=== PATIENT | male | born 1945 | race Caucasian/White ===

== ENCOUNTER → 2021-01-22 14:34 | Outpatient (CLI) | payer MEDICARE, OTHER, SELFPAY ==
--- NOTE | 2021-01-22 14:39 | DI.ECHO.S_ITS ---
[facility] +---------+ : : [address] : [place] : : : : [id number] : : : : Phone: [phone] Echocardiogram Report + + :Name: ROBERT GUTIERREZ Study Date: 01/22/2021 Height: 75 in : [facility] Weight: 194 lb : : Gender: Male BSA: 2.2 m2 : :: 1945 Age: 76 yrs BP: 139/89 mmHg: :Reason For Study: syncope : :Ordering Physician: KAYLA, : :DANN Performed By: Pola Mehta : :Referring: DANN GARZA : + + Interpretation Summary Sinus bradycardia with heart rate 43-48 pm. Normal LV sized and wall thickness. Normal wall motion and LV systolic function. EF is 55-60%. Stage I diastolic dysfunction. Normal chamber sizes. No valvular abnormalities. No prior study available for comparison Procedure: A two-dimensional transthoracic echocardiogram with color flow and Doppler was performed. The study quality was technically adequate. There is no prior echocardiogram noted for this patient. The patient was in sinus bradycardia with heart rates between 43-48 bpm during the exam. Left Ventricle: The left ventricle is normal in size and wall thickness. Left ventricular systolic function is normal. The ejection fraction is estimated to be 55-60%. There are no focal wall motion abnormalities. Diastolic parameters suggest probable normal left ventricular diastolic function and normal filling pressures. Right Ventricle: The right ventricle is normal in size and function. Atria: Both atria are normal in size. There is no Doppler evidence for an interatrial shunt. Mitral Valve: The mitral valve is normal in structure and function. There is trace mitral regurgitation. Aortic Valve: The aortic valve is normal in structure and function. No aortic regurgitation is present. Tricuspid Valve: The tricuspid valve is normal in structure and function. There is mild tricuspid regurgitation. The right ventricular systolic pressure is estimated to be at least 31 mmHg based on an estimated right atrial pressure of 3 mm Hg. Pulmonic Valve: The pulmonic valve is normal in structure and function. There is a trace or physiologic amount of pulmonic regurgitation. Great Vessels: Dilated coronary sinus. The aortic root is normal size. The dimensions of the ascending aorta are normal. The IVC is of normal diameter and collapses greater than 50% with a sniff. This suggests a low right atrial pressure of 3 mm Hg. Pericardium/ Pleura There is no pericardial effusion. There is no pleural effusion. MMode/2D Measurements & Calculations LVIDd: 4.9 cm LVOT diam: 2.0 cm LVIDs: 3.2 cm Ao root diam: 3.3 cm FS: 35.0 % asc Aorta Diam: 3.5 cm IVSd: 0.88 cm LVPWd: 0.69 cm LV palomino. diameter/BSA (cm/m^2): 2.3 LV sys. diameter/BSA (cm/m^2): 1.5 LA A2 area: 18.7 cm2 RA long axis: 5.5 cm LA A4 area: 21.1 cm2 RA area: 16.2 cm2 LA length (vol): 5.9 cm RA vol: 40.4 ml LA vol: 56.3 ml RA : 18.7 ml/m2 LA vol index: 26.0 ml/m2 IVC diam: 2.0 cm TAPSE: 2.3 cm Doppler Measurements & Calculations Ao V2 max: 152.8 cm/sec LVOT Max Yosef: 138.9 cm/sec Ao V2 mean: 99.3 cm/sec LV V1 max P.7 mmHg Ao max P.3 mmHg LV V1 VTI: 29.7 cm Ao mean P.6 mmHg RADAMES(I,D): 2.9 cm2 Ao V2 VTI: 31.4 cm RADAMES(V,D): 2.8 cm2 sev ratio: 0.95 RADAMES indexed to BSA (cm^2/m^2): 1.4 MV E max yosef: 89.3 cm/sec TR max yosef: 265.8 cm/sec MV A max yosef: 90.6 cm/sec TR max P.3 mmHg MV E/A: 0.99 PA V2 max: 125.9 cm/sec Med Peak E' Yosef: 7.8 cm/sec PA V2 mean: 91.0 cm/sec E/E' med: 11.4 PA mean P.6 mmHg Lat Peak E' Yosef: 10.8 cm/sec PA pr(Accel): 15.6 mmHg E/E' lat: 8.2 E/e' average: 9.8 MV dec time: 0.25 sec SV(LVOT): 91.9 ml Electronically signed by: Kristal Fraga M.D. on Reading Physician:01/22/2021 11:19 PM
== END ==
PROVIDERS: Family Provider Family Medicine; PCP Family Medicine; Referring Provider Family Medicine; Visit Provider Family Medicine
DX: I07.1 Rheumatic tricuspid insufficiency (principal); R55 Syncope and collapse; R07.2 Precordial pain
CPT/HCPCS: 93306

== ENCOUNTER → 2022-02-07 11:56 | Outpatient (CLI) | payer MEDICARE, OTHER, SELFPAY ==
--- NOTE | 2022-02-07 12:01 | DI.CT.S_ITS ---
PROCEDURE: CT KIDNEY URETER BLADDER (KUB) INDICATIONS: Calculus of kidney TECHNIQUE: Axial sections were acquired from the lung bases to the pubic symphysis. Coronal and sagittal reformats were performed. For radiation dose reduction, the following was used: automated exposure control, adjustment of mA and/or kV according to patient size. COMPARISON: None. FINDINGS: Image quality: Lack of intravenous contrast limits assessment of solid and vascular structures, particularly for neoplasm Lower thorax: The lung bases are clear. Heart size normal. No hiatal hernia. Liver: Normal in size and attenuation. No contour deformity present. Biliary system: Cholecystectomy. No intra or extrahepatic bile duct dilation. Pancreas: Unremarkable without mass or inflammation evident. Spleen: Normal in size and density. Adrenals: Normal morphology and density. Reproductive system: Unremarkable as visualized. Urinary system: 1.5 cm non obstructive right renal calculus. Indeterminate right renal hypodensity measures 1.8 cm. Additional 2 cm cortical cyst, probable simple cyst present. Indeterminate hypodensity 2.4 cm present in the left kidney. Several hyperdense lesions present in the left kidney is well. No evidence of hydronephrosis bilaterally. Gastrointestinal system: The bowel is unremarkable without evidence of bowel obstruction or inflammation. The stomach appears unremarkable. Multiple diverticula arise from the sigmoid colon without evidence of diverticulitis. Appendix: Normal appendix identified. No evidence of appendicitis. Peritoneal spaces: No mesenteric or retroperitoneal adenopathy. No free air. No free fluid. Vasculature: The IVC, aorta and iliac vasculature are unremarkable. Abdominal wall: Abdominal wall intact without evidence of ventral or inguinal hernias. Musculoskeletal: Normal bone mineralization. Degenerative disc disease and arthropathy noted in lower lumbar spine. Moderate central stenosis L4-5. No acute fractures. IMPRESSION: 1. Large 1.5 cm nonobstructive right renal calculus. No hydronephrosis bilaterally. 2. Indeterminate hypodensities noted bilateral kidneys measuring up to 2.4 cm on the left. Consider follow-up contrast CT or MRI to exclude neoplasm. 3. Degenerative changes include sigmoid diverticulosis and degenerative disc disease Approved by: Phi Pinedo M.D. on 02/07/2022 at 17:23
== END ==
PROVIDERS: Family Provider Family Medicine; PCP Family Medicine; Referring Provider Student in an Organized Health Care Education/Training Program; Visit Provider Student in an Organized Health Care Education/Training Program
DX: N20.0 Calculus of kidney (principal); R93.422 Abnormal radiologic findings on diagnostic imaging of left kidney; R93.421 Abnormal radiologic findings on diagnostic imaging of right kidney
CPT/HCPCS: 74176

== ENCOUNTER 2022-08-12 13:57 | Observation (INO) | payer MEDICARE, OTHER, SELFPAY ==
[2022-08-12 14:04] VITALS: BP 196/93; PULSE 48; RESP 15; TEMP 36.1; O2SAT 98; BMI 23.0
--- NOTE | 2022-08-12 14:09 | DI.RAD.S_ITS ---
PROCEDURE: XR CHEST 1V INDICATIONS: Possible stroke TECHNIQUE: One view of the chest was acquired. COMPARISON: None. FINDINGS: Surgical changes and devices: None. Lungs and pleura: Lungs are clear. No pleural effusions or pneumothorax. Mediastinum: Mediastinal contours appear normal. Heart size is normal. Bones and chest wall: No suspicious bony lesions. Overlying soft tissues appear unremarkable. IMPRESSION: Normal for age, no sign of aspiration. Dictated by: Lui Knutson M.D. on 08/12/2022 at 14:56 Approved by: Lui Knutson M.D. on 08/12/2022 at 14:57
[2022-08-12 14:26] LABS: Add Manual Diff / Slide Review NO; Basophils Absolute Auto 0 /uL (0-100); Basophils Percent Auto 0.7 % (0-2); Eosinophils Absolute Auto 0 /uL (0-450); Hematocrit 42.1 % (41-53); Hemoglobin 14.5 g/dL (13.5-17.5); Lymphocytes Absolute Auto 1700 /uL (1100-4500); Lymphocytes Percent Auto 35.7 % (25-40); Mean Corpuscular HGB Conc 34.4 % (30-36); Mean Corpuscular Hemoglobin 29.4 PG (26-34); Mean Corpuscular Volume 85.5 fL (80-100); Monocytes Absolute Auto 400 /uL (0-900); Monocytes Percent Auto 9.4 % (3-14); Neutrophils Absolute Auto 2500 /uL (1500-7000); Neutrophils Percent Auto 53.2 % (50-75); Platelet Count 152 X10^3/uL (150-400); Red Blood Cell Count 4.93 X10^6/uL (4.5-5.9); Red Cell Distribution Width 13.2 % (11.6-14.8); White Blood Cell Count 4.8 X10^3/uL (4.5-11.0)
--- NOTE | 2022-08-12 14:28 | DI.CT.S_ITS ---
PROCEDURE: CT HEAD/BRAIN WO CON INDICATIONS: double vision since yesterday, NOT TPA candidate TECHNIQUE: Noncontrast 4.5 mm thick angled axial sections acquired from the foramen magnum to the vertex, with coronal and sagittal reformats. For radiation dose reduction, the following was used: automated exposure control, adjustment of mA and/or kV according to patient size. COMPARISON: None. FINDINGS: Image quality: Excellent. CSF spaces: Basal cisterns are patent. No extra-axial fluid collections. The ventricles are symmetric in size and shape. Brain: No intracranial bleeds can be seen. There is a 1 cm ovoid nodule along the left aspect of the falx anteriorly, as seen on series 4, image 18. . There is cerebral volume loss for age, with resultant ventricular and sulcal prominence. There are periventricular and deep white matter chronic small vessel ischemic changes. There is intracranial internal carotid artery atherosclerosis. Skull and face: Calvarium and visualized facial bones appear intact, without suspicious lesions. Sinuses: Visualized sinuses and mastoids are clear. IMPRESSION: No acute intracranial process is seen. No acute intracranial hemorrhage is seen. Incidental 1 cm nodule along the left aspect of the anterior falx, which is attributed to a meningioma. Dictated by: Sanchez Crowley M.D. on 08/12/2022 at 13:38 Approved by: Sanchez Crowley M.D. on 08/12/2022 at 13:40
[2022-08-12 14:31] LABS: INR 1.2 (0.9-1.3); Prothrombin Time 13.4 SECONDS (10.1-12.7)
[2022-08-12 14:33] LABS: PTT Partial Thromboplastin Tim 31 SECONDS (26-36)
[2022-08-12 14:35] LABS: Alanine Aminotransferase 21 IU/L (<50); Albumin 4.1 g/dL (3.5-5.0); Albumin Globulin Ratio 1.6 (1.0-2.8); Alkaline Phosphatase 71 U/L (38-126); Aspartate Aminotransferase 26 IU/L (17-59); BUN Creatinine Ratio 16.2 (6-22); Blood Urea Nitrogen 16 mg/dL (9-20); Carbon Dioxide 27 mmol/L (22-32); Chloride 105 mmol/L (98-107); Creatine Kinase 105 U/L (55-170); Estimated Glomerular Filt Rate > 60 mL/min (>60); Globulin 2.5 g/dL (1.7-4.1); Glucose 108 mg/dL (80-110); HEMOLYSIS < 15 (0-50); Sodium 138 mmol/L (137-145); Total Protein 6.6 g/dL (6.3-8.2)
[2022-08-12 14:47] LABS: Troponin I < 0.012 ng/mL (0.01-0.034)
[2022-08-12 14:50] LABS: CKMB % Relative Index 1.6 % (1.5-5.0); Creatine Kinase MB 1.66 ng/mL (<2.37)
[2022-08-12 15:52] VITALS: BP 180/90; PULSE 50; RESP 12; O2SAT 99
--- NOTE | 2022-08-12 18:46 | ED.EYEPROB ---
HPI - Eye Problem General Chief complaint: Eye Problems Stated complaint: binocular vision as of yesterday Time Seen by Provider: 08/12/22 18:04 Source: patient Mode of arrival: Ambulatory History of Present Illness HPI Narrative: 77-year-old male nonsmoker with history of hypertension, prior throat cancer presents with his in the chief complaint of double vision that he noticed yesterday. He denies any recent trauma or injury, no fever, chills or neck pain. No chest pain or shortness of breath. He states that he was in his normal state of health and gone for a walk and started noticing that with both eyes open he had double vision with images [id number] both at close range and distant. He denies other neurologic symptoms such as dizziness, weakness or lightheadedness, he has no trouble with ambulation or ataxia and denies any extremity numbness, tingling or weakness. Related Data Home Medications Medication Instructions Recorded Confirmed hydrochlorothiazide 25 mg tablet 25 mg PO QDAY #0 tabs 02/11/16 Previous Rx's Medication Instructions Recorded potassium citrate 10 mEq (1,080 20 meq PO Q DAY #90 tabs 01/31/17 mg) tablet,extended release Allergies Allergy/AdvReac Type Severity Reaction Status Date / Time No Known Drug Allergies Allergy Verified 08/12/22 14:04 Review of Systems Review of Systems Narrative: GENERAL: Denies chills, fatigue, malaise, fever, sweats. HEENT: Denies sinus pain, ear pain, sore throat, difficulty swallowing, dizziness. RESPIRATORY: Denies dyspnea, cough, wheezing, hemoptysis, sputum. CARDIOVASCULAR: Denies chest pain, palpitations, orthopnea, edema, GASTROINTESTINAL: Denies nausea, vomiting, abdominal pain, diarrhea, constipation, melena. : Denies dysuria, frequency, incontinence, hematuria, urinary retention. MUSCULOSKELETAL: denies weakness, joint pain, or bony pain SKIN: Denies rash, skin lesions, or other NEUROLOGIC: See HPI PSYCHIATRIC: No concerning psychosocial issues. 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 Well-developed patient, in mild distress. GCS 15 HEAD: Atraumatic. Normocephalic. EYES: Pupils equal round and reactive. Lateral gaze palsy when looking Right his R eye does not fully track laterally. No scleral icterus. No injection or drainage. ENT: Nose without bleeding, purulent drainage. Throat without erythema, tonsillar hypertrophy or exudate. Airway patent. NECK: Trachea midline. Non tender CARDIOVASCULAR: Regular rate and rhythm without murmurs, gallops, or rubs. RESPIRATORY: Clear to auscultation. Breath sounds equal bilaterally. No wheezes, rales, or rhonchi. GASTROINTESTINAL: Abdomen soft, non-tender, nondistended. EXTREMITIES: No edema or joint tenderness. BACK: Nontender without deformity or crepitance. No flank tenderness. NEURO: AOx3. SKIN: No rash or erythema of visible areas Initial Vital Signs Initial Vital Signs: Vital Signs Temperature 97.0 F L 08/12/22 14:04 Pulse Rate 48 L 08/12/22 14:04 Respiratory Rate 15 08/12/22 14:04 Blood Pressure 196/93 H 08/12/22 14:04 Pulse Oximetry 98 08/12/22 14:04 Oxygen Delivery Method Room Air 08/12/22 14:04 Scores NIH Stroke Scale Level of Conciousness: Alert, keenly responsive Ask month/age: Answers both questions correctly. Open/close eyes, close hand: Performs both tasks correctly Best gaze horizontal: Partial gaze palsy, can be overcome by finger tracking, head turning Visual pimentel: No visual loss Facial palsy: Normal symetrical movement Left arm drift: No drift for full 10 sec Right arm drift: No drift for full 10 sec Left leg drift: No drift for full 5 sec Right leg drift: No drift for full 5 sec Limb ataxia: Absent Sensory on face/arms/legs: Normal, no sensory loss Best language: No aphasia, normal Dysarthria: Normal Extinction or inattention: No abnormality Total NIH Stroke scale score: 1 Course Orders Ordered: ED Orders 08/12/22 18:58 CT angio head and neck Stat 08/12/22 22:05 Education, smoking cessation ONGOING Education, smoking cessation ONGOING 08/12/22 23:59 Urine Drug Screen, Rapid Stat 08/13/22 MR stroke Stat Acetaminophen (Acetaminophen 325 Mg Tablet) 650 mg PO Q6H PRN PRN Reason: Fever/Mild Pain (1-3) Aspirin (Aspirin Ec 81 Mg Tablet) 81 mg PO DAILY [facility] Atorvastatin Calcium (Atorvastatin 20 Mg Tablet) 40 mg PO BEDTIME [facility] Last Admin: 08/12/22 23:33 Dose: 40 mg Documented By: MS Enalaprilat (Enalaprilat 2.5 Mg/ 2 Ml Vial) 0.625 mg IV Q6H [facility] Last Admin: 08/12/22 23:33 Dose: 0.625 mg Documented By: MS Enoxaparin Sodium (Enoxaparin 40 Mg/0.4 Ml Syringe) 40 mg SUBCUT DAILY [facility] Naloxone HCl (Naloxone 0.4 Mg/Ml Vial) 0.2 mg IV Q2MIN PRN PRN Reason: Opiate Reversal Discontinued Medications Aspirin (Aspirin 81 Mg Chew Tab) 324 mg PO NOW ONE Stop: 08/12/22 18:59 Last Admin: 08/12/22 19:38 Dose: 324 mg Documented By: KB Vital Signs Vital signs: Vital Signs - 8 hr 08/12/22 14:04 08/12/22 15:52 Temperature 97.0 F L Pulse Rate 48 L 50 L Respiratory Rate 15 12 Blood Pressure 196/93 H 180/90 H Pulse Oximetry 98 99 Oxygen Delivery Method Room Air Room Air MDM - Eye Problem Lab Data 08/12/22 14:15 08/12/22 14:15 Labs: Lab Results 08/12/22 08/12/22 08/12/22 Range/Units 14:15 14:15 14:15 WBC 4.8 (4.5-11.0) X10^3/uL RBC 4.93 (4.5-5.9) X10^6/uL Hgb 14.5 (13.5-17.5) g/dL Hct 42.1 (41-53) % MCV 85.5 (80-100) fL MCH 29.4 (26-34) PG MCHC 34.4 (30-36) % RDW 13.2 (11.6-14.8) % Plt Count 152 (150-400) X10^3/uL Neut % (Auto) 53.2 (50-75) % Lymph % (Auto) 35.7 (25-40) % [place] % (Auto) 9.4 (3-14) % Eos % (Auto) 1.0 L (2-4) % Baso % (Auto) 0.7 (0-2) % Neut # (Auto) 2500 (9848-3061) /uL Lymph # (Auto) 1700 (7824-8943) /uL [place] # (Auto) 400 (0-900) /uL Eos # (Auto) 0 (0-450) /uL Baso # (Auto) 0 (0-100) /uL PT 13.4 H (10.1-12.7) SECONDS INR 1.2 (0.9-1.3) APTT 31 (26-36) SECONDS Sodium 138 (137-145) mmol/L Potassium 4.0 (3.4-5.1) mmol/L Chloride 105 (98-107) mmol/L Carbon Dioxide 27 (22-32) mmol/L BUN 16 (9-20) mg/dL Creatinine 0.99 (0.66-1.25) mg/dL Estimated GFR > 60 (>60) mL/min BUN/Creatinine Ratio 16.2 (6-22) Glucose 108 (80-110) mg/dL Hemoglobin A1c (4.0-6.0) % Calcium 10.0 (8.4-10.2) mg/dL Magnesium 2.0 (1.6-2.3) mg/dL Total Bilirubin 1.0 (0.2-1.3) mg/dL AST 26 (17-59) IU/L ALT 21 (<50) IU/L Alkaline Phosphatase 71 (38-126) U/L Total Creatine Kinase 105 (55-170) U/L CK-MB (CK-2) 1.66 (<2.37) ng/mL CK-MB (CK-2) Rel Index 1.6 (1.5-5.0) % Troponin I < 0.012 (0.01-0.034) ng/mL Total Protein 6.6 (6.3-8.2) g/dL Albumin 4.1 (3.5-5.0) g/dL Globulin 2.5 (1.7-4.1) g/dL Albumin/Globulin Ratio 1.6 (1.0-2.8) 08/12/22 Range/Units 14:15 WBC (4.5-11.0) X10^3/uL RBC (4.5-5.9) X10^6/uL Hgb (13.5-17.5) g/dL Hct (41-53) % MCV (80-100) fL MCH (26-34) PG MCHC (30-36) % RDW (11.6-14.8) % Plt Count (150-400) X10^3/uL Neut % (Auto) (50-75) % Lymph % (Auto) (25-40) % [place] % (Auto) (3-14) % Eos % (Auto) (2-4) % Baso % (Auto) (0-2) % Neut # (Auto) (0976-5001) /uL Lymph # (Auto) (8526-6339) /uL [place] # (Auto) (0-900) /uL Eos # (Auto) (0-450) /uL Baso # (Auto) (0-100) /uL PT (10.1-12.7) SECONDS INR (0.9-1.3) APTT (26-36) SECONDS Sodium (137-145) mmol/L Potassium (3.4-5.1) mmol/L Chloride (98-107) mmol/L Carbon Dioxide (22-32) mmol/L BUN (9-20) mg/dL Creatinine (0.66-1.25) mg/dL Estimated GFR (>60) mL/min BUN/Creatinine Ratio (6-22) Glucose (80-110) mg/dL Hemoglobin A1c 5.3 (4.0-6.0) % Calcium (8.4-10.2) mg/dL Magnesium (1.6-2.3) mg/dL Total Bilirubin (0.2-1.3) mg/dL AST (17-59) IU/L ALT (<50) IU/L Alkaline Phosphatase (38-126) U/L Total Creatine Kinase (55-170) U/L CK-MB (CK-2) (<2.37) ng/mL CK-MB (CK-2) Rel Index (1.5-5.0) % Troponin I (0.01-0.034) ng/mL Total Protein (6.3-8.2) g/dL Albumin (3.5-5.0) g/dL Globulin (1.7-4.1) g/dL Albumin/Globulin Ratio (1.0-2.8) Urine Dip Bedside Urine Glucose Negative Bedside Urine Bilirubin - Negative Bedside Urine Ketone - Negative Urine Specific [place] 1.015 Bedside Urine Occult Blood - Negative Bedside Urine pH 6.0 Bedside Urine Protein - Negative Bedside Urine Urobilinogen - Negative Bedside Urine Nitrite - Negative Bedside Urine Leukocytes - Negative Esterase Imaging Data CT scan - head: Radiologist's Impression: No acute intracranial process. Incidental 1 cm nodule along the left aspect of the anterior falx which was attributed to a meningioma MDM Narrative Medical decision making narrative: CC: 77-year-old male with history of hypertension with binocular double vision Complicating co-morbidities: Hypertension, age, prior cancer Data collected from: Patient Medical records reviewed: Prior notes reviewed in our EMR Differential considered, but not limited to: Stroke, ocular problem versus other Exam documented above, pertinent findings include: Lateral gaze palsy Lab Test results independently reviewed as above. Pertinent findings: Independently reviewed EKG as above Imaging studies independently reviewed: CT of head without bleed, possible note of meningioma. CTA shows no significant or acute stenosis but again mention of falcine meningioma Scores Used: NIH stroke scale MIPS Elements: #187: Stroke & Stroke Rehabilitation: Thrombolytic Therapy [x] Patient arrived more than 3.5 hours after last known well time, or the time last known well is unknown Consultations: Hospitalist happy to accept Treatments: Aspirin Re-evaluations: No change or course of visit Discussion: Patient with neurologic symptoms since yesterday which include a binocular diplopia with physical exam findings consistent with a right lateral rectus palsy consistent with possible cranial nerve 6 palsy. Patient requires hospitalization for further evaluation of stroke including echo and MRI Discharge Plan Departure Patient Disposition: Admitted as Observation Clinical Impression: Gaze palsy Admit Date/Time: 08/12/22 22:10 Admit Provider: Naomi Jones
--- NOTE | 2022-08-12 18:58 | DI.CT.S_ITS ---
PROCEDURE: CT ANGIO HEAD AND NECK INDICATIONS: binocular double vision, CN6 palsy TECHNIQUE: After the administration of intravenous contrast, 1 mm thick sections acquired from the aortic arch through the [place] of [place]. Post-contrast 4.5 mm thick sections then re-acquired from the foramen magnum to the vertex. 3-dimensional vovpuih-ieeflvjdm-toviprsaqr (MIP) and/or volume rendering reformats were acquired of the central intracranial vasculature and neck separately. For radiation dose reduction, the following was used: automated exposure control, adjustment of mA and/or kV according to patient size. COMPARISON: None. FINDINGS: Image quality: Excellent. BRAIN: CSF spaces: Ventricles are normal in size and shape. Basal cisterns are patent. No extra-axial fluid collections. Brain: No midline shift. No intracranial bleeds. Left falx mass measuring approximately 0.7 cm. Most consistent with a benign meningioma. No area of hypodensity in a large vascular distribution to suggest acute infarction. Periventricular hypodensity consistent with chronic microvascular ischemic change. Age-related parenchymal loss. Skull and face: Calvarium and facial bones appear intact, without suspicious lesions. Orbits appear normal. Sinuses: Sinuses and mastoids are clear. HEAD CT ANGIOGRAPHY: Anterior circulation: Intracranial internal carotid arteries are normal in size and flow. The flow within the paired anterior cerebral arteries is normal and symmetric. The flow within the middle cerebral arteries is normal and symmetric. The anterior communicating artery is seen. No aneurysms are seen. Posterior circulation: origin of the bilateral posterior cerebral arteries. Visualized portions of the vertebral arteries demonstrate normal caliber, and join to form a normal appearing basilar artery. No aneurysms are seen. NECK CT ANGIOGRAPHY: Carotid system: The great vessels demonstrate a conventional anatomy as they arise from the aortic arch. The origins of the common carotid arteries appear patent. The common carotid arteries demonstrate normal caliber and courses. The bifurcation regions are both widely patent. Moderate calcified plaque at the carotid bulbs. Less than 50 % stenosis. The internal carotid arteries demonstrate normal calibers and courses. Posterior circulation: The origins of the vertebral arteries both appear widely patent. Right vertebral artery is dominant. The more superior extracranial portions of both vertebral arteries also demonstrate normal courses and calibers. They join to form a normal appearing basilar artery. Soft tissues: Visualized neck soft tissues demonstrate no suspicious abnormalities. 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 Bones: No suspicious bony lesions. Visualized cervical spine appears normally aligned. IMPRESSION: 1. No large vessel occlusion. 2. No critical stenosis in the neck. Less than 50 % stenosis at the carotid bulbs. There is moderate calcified plaque. Consider carotid ultrasound. 3. Right vertebral artery is dominant. origin of the bilateral international trade specialist, variant anatomy. 4. Small left falx meningioma. Any quantitative measurements of stenosis were performed using NASCET criteria. Dictated by: Michael Sawyer M.D. on 08/12/2022 at 20:06 Approved by: Michael Sawyer M.D. on 08/12/2022 at 20:16
[2022-08-12] MEDS: ASPIRIN 81 MG CHEW TAB 324 MG PO (19:38)
[2022-08-12 22:52] LABS: Hemoglobin A1C% w Est Avg Glu 5.3 % (4.0-6.0)
[2022-08-12 23:05] VITALS: BMI 23.0
[2022-08-12 23:15] VITALS: BMI 23.0
[2022-08-12] MEDS: ENALAPRILAT 2.5 MG/ 2 ML VIAL 0.625 MG IV (23:33)
[2022-08-12] MEDS: ATORVASTATIN 20 MG TABLET 40 MG PO (23:33)
[2022-08-12 23:34] VITALS: BP 183/87; PULSE 47; RESP 19; TEMP 36.8; O2SAT 99
--- NOTE | 2022-08-13 | DI.MRI.S_ITS ---
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 After the administration of contrast, axial 3D VIBE of the cranial vasculature and brain. Brain MRA: Non-contrast 3-D time of flight MR angiogram, with multiple ojegqns-czsxzrbrl-ghflieubkv (MIP) reformats performed. Neck MRA: Axial and sagittal TruFISP through the neck. Coronal dynamic MR angiogram during administration of contrast in the arterial and venous phases, with 3-dimenstional mtuayit-fthxsuxbg-ybohofkzwh (MIP) reformats constructed from subtraction images. COMPARISON: [facility], CT, CT ANGIO HEAD AND NECK, 08/12/2022, 19:06. [facility], CT, CT HEAD/BRAIN WO CON, 08/12/2022, 14:20. FINDINGS: Image quality: Excellent. BRAIN: The ventricular system and cortical sulci demonstrate atrophy, consistent for the patient's stated age. There are areas of increased T2/FLAIR signal intensity within the periventricular and subcortical white matter. There is no acute intra-or extra axial fluid collection. No acute hemorrhage, or midline shift. There is an unchanged extra-axial enhancing mass in the left parafalcine region most suggestive of meningioma. No associated edema. Brainstem is unremarkable. There are no areas of restricted diffusion. Globes are symmetrical. Sinuses are aerated. Osseous structures are intact. BRAIN MR ANGIOGRAM: Anterior circulation: Less than 50% atherosclerotic narrowing within the supraclinoid internal carotid arteries bilaterally. The flow within the paired anterior cerebral arteries is normal and symmetric. The flow within the middle cerebral arteries is normal and symmetric. The anterior communicating artery is seen. No stenoses, occlusions, or aneurysms. Posterior circulation: There is right vertebral artery dominance. 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 The visualized portions of the vertebral arteries demonstrate normal caliber, and join to form a normal appearing basilar artery. The flow within the posterior cerebral arteries is normal and symmetric. No stenoses, occlusions, or aneurysms. NECK MR ANGIOGRAM: Carotids: Great vessels demonstrate a conventional anatomy as they arise from the aortic arch. The origins of the common carotid arteries appear patent. The calibers and courses of both common carotid arteries are normal. The bifurcation regions appear normal bilaterally. The internal carotid arteries demonstrate normal course and caliber. Posterior circulation: The origins of the vertebral arteries appear patent. More superior portions of both vertebral arteries demonstrate normal course and caliber, and join to form a normal appearing basilar artery. Miscellaneous: Subclavian arteries appear patent. Pre-contrast images through the neck show no soft tissue abnormalities. IMPRESSION: 1. No acute intracranial process. 2. Moderate atrophy and chronic microvascular ischemic changes. 3. No areas of hemodynamically significant stenosis, vascular occlusion or aneurysmal dilation within the anterior circulation. 4. No areas of hemodynamically significant stenosis, vascular occlusion or aneurysmal dilation within the posterior circulation. 5. No areas of hemodynamically significant stenosis, vascular occlusion or aneurysmal dilation within the neck vasculature. Dictated by: Libertad Mckee M.D. on 08/13/2022 at 9:27 Approved by: Libertad Mckee M.D. on 08/13/2022 at 9:32
--- NOTE | 2022-08-13 00:02 | P.HP_ITS ---
History of Present Illness History of Present Illness Date Patient Seen: 08/13/22 Time Patient Seen: 00:02 Chief complaint: binocular vision as of yesterday Narrative: Fletcher Russo is a 77-year-old male former smoker with history of hypertension, prior throat cancer presents with his in the chief complaint of double vision that he noticed yesterday.? ? He states that he was in his normal state of health and gone for a walk and started noticing that with both eyes open, he had double vision with images smcr-ju-[id number] both at close range and distant.? If he closes one eye, he can see normally this occurs with both eyes. He has a history of laser surgery of both eyes, denies ever having cataract surgery. He states he is very healthy, has an 18 mile walk, walking about 4 miles per day with his dog. He denies any recent trauma or injury, no fever, chills or neck pain.? No chest pain or shortness of breath. He denies other neurologic symptoms such as dizziness, weakness or lightheadedness, he has no trouble with ambulation or ataxia and denies any extremity numbness, tingling or weakness. Report of brain CT reported Incidental 1 cm nodule along the left aspect of the anterior falx, which is attributed to a meningioma. Otherwise no intercranial process or hemmorhage seen. He is afebrile blood pressure is high at 180 3/87 heart rate 47 respiratory rate 19 oxygen saturation 99% on room air he weighs 83.4 kg with a BMI of 23. CBC, BMP liver enzymes are all unremarkable his A1c is 5.3 indicating that he is not diabetic and COVID-19 PCR is negative. 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) Surgical History (Updated 08/13/22 @ 00:10 by RJ Pimentel) History of lithotripsy History of radical neck dissection Hx of LASIK Family & Social History Family History (Updated 08/13/22 @ 00:11 by RJ Pimentel) Father Cancer Lung cancer Mother Cardiac arrest Other Hyperlipidemia Social History: household members spouse Prior Living Arrangements House Safety & Behavioral: Feels Safe in Current Yes Environment Been Physically Hurt or No Threatened By a Person Tobacco & Substance use: Smoking Status quit 6 years ago alcohol intake denies alcohol intake frequency holiday/special occasion Substance Use Type does not use Meds Home Medications and Allergies Home Medications Medication Instructions Recorded Confirmed Type hydrochlorothiazide 25 mg tablet 25 mg PO QDAY #0 tabs 02/11/16 History potassium citrate 10 mEq (1,080 20 meq PO Q DAY #90 tabs 01/31/17 Rx mg) tablet,extended release Allergies Allergy/AdvReac Type Severity Reaction Status Date / Time No Known Drug Allergies Allergy Verified 08/12/22 14:04 Review of Systems Review of Systems ROS: Yes All systems reviewed with the patient and are negative except as otherwise documented Exam Vital Signs (past 8 hours): - 08/12/22 23:34 Temperature 98.2 F Pulse Rate 47 L Respiratory Rate 19 Blood Pressure 183/87 H Pulse Oximetry 99 Oxygen Delivery Method Room Air Narrative Exam Narrative: Gen: Alert, oriented, thin 77 y.o. male, NAD HEENT: normocephalic, atraumatic, left eye turned medially, appears not to track with right eye, conjunctiva clear, sclera non-icteric, oral mucosa pink and moist Neck: supple, full ROM, no JVD, trachea is midline Resp: Lungs CTA, non-labored breathing CV: RRR, no murmur or rubs Abd: soft, non-tender, normoactive BTs Skin: no lesions or rashes, dry and intact Neuro: Alert and oriented X 4 w/no focal deficits. Speech clear and coherent. Extremities: moves all 4 extremities, is ambulatory, negative Morenita?s sign Psyche: normal mood and affect. Objective Labs 08/12/22 14:15 08/12/22 14:15 Labs: Laboratory Results - last 24 hr 08/12/22 08/12/22 08/12/22 14:15 14:15 14:15 WBC 4.8 RBC 4.93 Hgb 14.5 Hct 42.1 MCV 85.5 MCH 29.4 MCHC 34.4 RDW 13.2 Plt Count 152 Neut % (Auto) 53.2 Lymph % (Auto) 35.7 Callahan % (Auto) 9.4 Eos % (Auto) 1.0 L Baso % (Auto) 0.7 Neut # (Auto) 2500 Lymph # (Auto) 1700 Callahan # (Auto) 400 Eos # (Auto) 0 Baso # (Auto) 0 PT 13.4 H INR 1.2 APTT 31 Sodium 138 Potassium 4.0 Chloride 105 Carbon Dioxide 27 BUN 16 Creatinine 0.99 Estimated GFR > 60 BUN/Creatinine Ratio 16.2 Glucose 108 Hemoglobin A1c Calcium 10.0 Magnesium 2.0 Total Bilirubin 1.0 AST 26 ALT 21 Alkaline Phosphatase 71 Total Creatine Kinase 105 CK-MB (CK-2) 1.66 CK-MB (CK-2) Rel Index 1.6 Troponin I < 0.012 Total Protein 6.6 Albumin 4.1 Globulin 2.5 Albumin/Globulin Ratio 1.6 SARS-CoV-2 (PCR) 08/12/22 08/12/22 14:15 22:47 WBC RBC Hgb Hct MCV MCH MCHC RDW Plt Count Neut % (Auto) Lymph % (Auto) Callahan % (Auto) Eos % (Auto) Baso % (Auto) Neut # (Auto) Lymph # (Auto) Callahan # (Auto) Eos # (Auto) Baso # (Auto) PT INR APTT Sodium Potassium Chloride Carbon Dioxide BUN Creatinine Estimated GFR BUN/Creatinine Ratio Glucose Hemoglobin A1c 5.3 Calcium Magnesium Total Bilirubin AST ALT Alkaline Phosphatase Total Creatine Kinase CK-MB (CK-2) CK-MB (CK-2) Rel Index Troponin I Total Protein Albumin Globulin Albumin/Globulin Ratio SARS-CoV-2 (PCR) Cancelled Assessment & Plan Assessment & Plan narrative: Emre Russo will be observed overnight for further assessment and workup of a TIA/Stroke 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 - differential outside of a CVA includes idiopathic sixth intercranial hypertension, demylenation, ischemia, unrupture aneurysm, or neoplastic, the latter a suspicion given the patient's past malignancy history. TIA/Stroke, acute and present on admission - Cardiac telemetry - NIH score greater than 5 X no, HIH scoring and neuro checks q 4 hours - Dual antiplatelet therapy: No Low dose aspirin only. - MR stroke scheduled for 08/13 - Complete Echo with bubble study for 08/13 - PT/OT/ST evaluation - His last echocardiogram done in 01/2021 indicated a preserved EF w/Stage 1 diastolic dysfunction Hypertension, acute with an admission bp of 196/93, present on admission - Allow for permissive hypertension of 220/110 HR 60 to allow for brain perfusion, goal drop in bp to a systolic of no less than 150 - IV labetolol if his systolic exceeds 220 or diastolic greater than 105. HLD Fasting lipid panel, pending for 0500 labs - Atorvastatin 40 mg po at bedtime Risk stratification - Fasting lipid panel pending for the morning - A1c is 5.3 % Diabetes type 2 pre-diabetic X not diabetic Other independent historians: None Discussion of results, plan of care with independent HCP/other: ED provider Reviewed outside records: Echocardiogram VTE Prophylaxis: Wells risk score 0 XEnoxaparin 40 mg subQ once daily C Elton betancur SCDs Patient is placed into observation as his stay is not expected to exceed 2 midnights. FEN: IV fluids: saline lock, diet: heart healthy, labs: CBC, C/BMP, liver enzymes, Mag, PT/INR Consultants None Social determinants of health: Lives on [place], access to specialists is limited or difficult Dispo: probable d/c to home Code status: Full code as discussed with the patient who identifies his , Mariana as his surrogate and POA. [X] I have utilized all available immediate resources to obtain, update, or review of the patient's current medications VTE Deep Vein Thrombosis/Pulmonary Embolism Present on Admission: No MIPS - Admit I confirm the patient?s Advance Care Plan is present, Code status is documented, Surrogate decision maker is in patient?s record: Yes MIPS - DC The patient has current or prior documentation of left ventricular ejection fraction (LVEF) less than 40%, or moderate or severely depressed left ventricular systolic function.: No COVID-19 COVID-19 status: Negative Result date/Date tested (Pos, Neg/Pending): 08/13/22 Quality VTE Deep Vein Thrombosis/Pulmonary Embolism Present on Admission: No
[2022-08-13 00:12] LABS: COVID19 -Nasal RAPID Negative (Negative)
[2022-08-13 00:22] LABS: UR Morphine/Opiate cutoff 300 Negative (Negative); Ur Creatinine Normal (Normal); Ur Specific Gravity Normal (Normal); Urine Amphetamines Negative (Negative); Urine Barbiturates Negative (Negative); Urine Benzodiazepines Negative (Negative); Urine Cocaine Negative (Negative); Urine MDMA Negative (Negative); Urine Methadone Negative (Negative); Urine Methamphetamines Negative (Negative); Urine Oxycodone Negative (Negative); Urine Phencyclidine Negative (Negative); Urine Tetrahydrocannabinol Negative (Negative); Urine Tricyclic Antidepressant Negative (Negative); Urine pH Normal (Normal)
[2022-08-13 00:29] VITALS: BP 134/69
[2022-08-13 04:35] VITALS: BP 114/64; PULSE 48; RESP 17; TEMP 36.3; O2SAT 93
[2022-08-13 04:41] LABS: Add Manual Diff / Slide Review NO; Basophils Absolute Auto 100 /uL (0-100); Basophils Percent Auto 1.4 % (0-2); Eosinophils Absolute Auto 100 /uL (0-450); Hematocrit 40.5 % (41-53); Lymphocytes Absolute Auto 1700 /uL (1100-4500); Lymphocytes Percent Auto 31.8 % (25-40); Mean Corpuscular HGB Conc 34.5 % (30-36); Mean Corpuscular Hemoglobin 29.4 PG (26-34); Mean Corpuscular Volume 85.1 fL (80-100); Monocytes Absolute Auto 500 /uL (0-900); Monocytes Percent Auto 10.2 % (3-14); Neutrophils Absolute Auto 2800 /uL (1500-7000); Neutrophils Percent Auto 54.6 % (50-75); Platelet Count 142 X10^3/uL (150-400); Red Blood Cell Count 4.76 X10^6/uL (4.5-5.9); Red Cell Distribution Width 13.2 % (11.6-14.8); White Blood Cell Count 5.2 X10^3/uL (4.5-11.0)
[2022-08-13 04:53] LABS: Cholesterol 158 mg/dL (140-199); HDL Cholesterol 44 mg/dL (40-60); LDL Cholesterol Calculated 102 mg/dL (<100); Triglycerides 58 mg/dL (35-150)
[2022-08-13 04:55] LABS: Alanine Aminotransferase 20 IU/L (<50); Albumin 3.6 g/dL (3.5-5.0); Albumin Globulin Ratio 1.6 (1.0-2.8); Alkaline Phosphatase 68 U/L (38-126); Aspartate Aminotransferase 24 IU/L (17-59); BUN Creatinine Ratio 17.7 (6-22); Bilirubin Total 1.5 mg/dL (0.2-1.3); Blood Urea Nitrogen 17 mg/dL (9-20); Calcium 9.5 mg/dL (8.4-10.2); Carbon Dioxide 27 mmol/L (22-32); Chloride 105 mmol/L (98-107); Estimated Glomerular Filt Rate > 60 mL/min (>60); Globulin 2.3 g/dL (1.7-4.1); Glucose 91 mg/dL (80-110); HEMOLYSIS < 15 (0-50); Magnesium 1.9 mg/dL (1.6-2.3); Sodium 138 mmol/L (137-145); Total Protein 5.9 g/dL (6.3-8.2)
[2022-08-13 05:32] LABS: Thyroid Stimulating Hormone 3.25 uIU/mL (0.47-4.68)
[2022-08-13 07:45] VITALS: O2SAT 97
--- NOTE | 2022-08-13 08:04 | PC.NURSE ---
Day shift: Pt off unit for MRI at approx 0800. Off tele and CINDER BLOCK MASON Judith is aware.
[2022-08-13] MEDS: ASPIRIN EC 81 MG TABLET PO (09:04)
[2022-08-13 09:35] VITALS: BP 151/86; PULSE 50; RESP 16; TEMP 36.4; O2SAT 100
--- NOTE | 2022-08-13 09:52 | DI.ECHO.S_ITS ---
Interpretation Summary The left ventricle is normal in size and wall thickness. Left ventricular systolic function appears normal without focal wall motion abnormalities. The ejection fraction is estimated to be 55-60%. Diastolic parameters suggest probable normal left ventricular diastolic function and normal filling pressures. The right ventricle is normal in size and function. The left atrium is mildly dilated. Right atrial size is normal. There is no significant valvular heart disease. The aortic root is normal size. Procedure: A two-dimensional transthoracic echocardiogram with color flow and Doppler was performed. The study quality was technically good. There has been no significant change since the previous study. The patient was in sinus bradycardia with heart rates between 43-48 bpm during the exam. Left Ventricle: The left ventricle is normal in size and wall thickness. Left ventricular systolic function appears normal without focal wall motion abnormalities. The ejection fraction is estimated to be 55-60%. Diastolic parameters suggest probable normal left ventricular diastolic function and normal filling pressures. Right Ventricle: The right ventricle is normal in size and function. Atria: The left atrium is mildly dilated. Right atrial size is normal. There is no Doppler evidence for an interatrial shunt. Mitral Valve: The mitral valve leaflets appear mildly thickened, but open well. The mitral valve leaflets appear to open well. Calcified mitral apparatus. There is trace mitral regurgitation. Aortic Valve: The aortic valve is normal in structure and function. No aortic regurgitation is present. Tricuspid Valve: The tricuspid valve is normal in structure and function. There is mild tricuspid regurgitation. Pulmonic Valve: The pulmonic valve leaflets are thin and pliable; valve motion is normal. There is a trace or physiologic amount of pulmonic regurgitation. There is no significant valvular heart disease. Great Vessels: The aortic root is normal size. Dilated coronary sinus. The ascending aorta is normal in size. The pulmonary artery is normal size. The IVC is of normal diameter and collapses greater than 50% with a sniff. This suggests a low right atrial pressure of 3 mm Hg. Pericardium/ Pleura There is no pericardial effusion. There is no pleural effusion. MMode/2D Measurements & Calculations LVIDd: 4.6 cm LVOT diam: 2.0 cm LVIDs: 2.7 cm Ao root diam: 3.5 cm FS: 41.2 % asc Aorta Diam: 3.4 cm EPSS: 0.40 cm IVSd: 1.0 cm LVPWd: 0.83 cm LV palomino. diameter/BSA (cm/m^2): 2.2 LV sys. diameter/BSA (cm/m^2): 1.3 LA A2 area: 23.9 cm2 RA long axis: 5.7 cm LA A4 area: 20.8 cm2 RA area: 19.2 cm2 LA length (vol): 5.2 cm RA vol: 55.1 ml LA vol: 80.4 ml RA : 26.0 ml/m2 LA vol index: 38.0 ml/m2 IVC diam: 1.9 cm RVD1 (basal): 3.0 cm TAPSE: 2.3 cm Doppler Measurements & Calculations Ao V2 max: 142.7 cm/sec LVOT Max Yosef: 131.8 cm/sec Ao V2 mean: 94.2 cm/sec LV V1 max P.9 mmHg Ao max P.1 mmHg LV V1 VTI: 30.3 cm Ao mean P.1 mmHg RADAMES(I,D): 3.0 cm2 Ao V2 VTI: 32.0 cm RADAMES(V,D): 2.9 cm2 sev ratio: 0.95 RADAMES indexed to BSA (cm^2/m^2): 1.4 MV E max yosef: 94.6 cm/sec TR max yosef: 269.2 cm/sec MV A max yosef: 90.3 cm/sec TR max P.0 mmHg MV E/A: 1.0 PA V2 max: 96.9 cm/sec Med Peak E' Yosef: 7.6 cm/sec PA V2 mean: 66.3 cm/sec E/E' med: 12.4 PA mean P.0 mmHg Lat Peak E' Yosef: 12.3 cm/sec E/E' lat: 7.7 E/e' average: 10.0 MV dec time: 0.28 sec MVA(VTI): 2.1 cm2 MV V2 mean: 47.5 cm/sec SV(LVOT): 95.7 ml MV mean P.2 mmHg MV V2 VTI: 44.5 cm Reading Physician:01:08 PM
--- NOTE | 2022-08-13 11:17 | CM.DANOTE ---
Initial Discharge Assessment Note: 77 year old admitted yesterday with r/o CVA related to vision changes. MRI and Echo done this morning. Patient is normally independent and lives with spouse on [place]. Plan: Patient would like to return home if medically cleared to [place] by 12 Noon [place] catch [place] ferry. Notified Dr Pierce. SAVANNAH Discharge Planning/Care Management CM Discharge Assessment Start: 08/13/22 11:16 Freq: Status: Active Protocol: Document 08/13/22 11:16 (Rec: 08/13/22 11:17 [email or web address]) Discharge Planning Assessment Assigned Bus Transportation Manager Kavita Melendez Advance Directives? No History Provided By Patient,Medical Record Prior Living Arrangements House Household Members spouse Type of transporation used prior to Drives own vehicle admit Needs Assistance With Home Chores / Shopping Caregiver for Another No Discharge Plan Home Referrals Initiated None needed Review Status In Process Next Review Type Continued Stay Review
--- NOTE | 2022-08-13 12:27 | PC.NURSE ---
Day shift: Paperwork signed and all questions answered. Pt left unit at approx 1221. He wanted to ambulate and he did very well. Reports the double vision still present. Taking a taxi to the [employer] and home to [place]. He has all belongings and MD scripts sent electronic to his pharmacy on [place].
--- NOTE | 2022-08-13 15:26 | P.DS_ITS ---
History of Present Illness History of Present Illness Date Patient Seen: 08/13/22 Chief complaint: binocular vision as of yesterday Narrative: Patient is stable not having any new symptoms continues to have some diplopia with left light preferentially looking inward. MRI completed without acute findings and echo completed without acute findings and ejection fraction of 55- 60%. 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 ? He stated that he was in his normal state of health and gone for a walk and started noticing that with both eyes open, he had double vision with images [id number] both at close range and distant.? If he closed one eye, he can see normally this occurs with both eyes. He has had a history of laser surgery of both eyes to help his distant vision with golf, denied ever having cataract surgery. He stated he is very healthy, has done an 18 mile walk, walking about 4 miles per day with his dog.? He denied any recent trauma or injury, no fever, chills or neck pain.? No chest pain or shortness of breath. He denied other neurologic symptoms such as dizziness, weakness or lightheadedness, he had no trouble with ambulation or ataxia and denies any extremity numbness, tingling or weakness. Report of brain CT reported Incidental 1 cm nodule along the left aspect of the anterior falx, which is attributed to a meningioma. Otherwise no intercranial process or hemmorhage seen.? He was afebrile blood pressure is high at 180 3/87 heart rate 47 respiratory rate 19 oxygen saturation 99% on room air he weighs 83.4 kg with a BMI of 23.? CBC, BMP liver enzymes are all unremarkable his A1c is 5.3 indicating that he is not diabetic and COVID-19 PCR is negative. Troponin was normal. Further workup in the hospital included MRI of the brain and echocardiogram. MRI shows no acute findings. Echocardiogram had no acute findings and ejection fraction was 55-60% there was noted sinus 43-48. Following discharge patient will see an strategic consultant for further examination. Will be completed in the next couple of days. Patient will arrange on his own. Status at Discharge Cognitive/behavioral status at discharge: at baseline, oriented Functional status at discharge: independent ambulation Overall status at discharge: patient is not back to baseline Time Spent with Patient Time spent: Greater than 30 minutes Exam Vital Signs (past 8 hours): - 08/13/22 07:45 08/13/22 09:35 Temperature 97.5 F L Pulse Rate 50 L Respiratory Rate 16 Blood Pressure 151/86 H Pulse Oximetry 97 100 Oxygen Delivery Method Room Air Oxygen Flow Rate 0 Oxygen Delivery Method Room Air Oxygen Flow Rate 0 Narrative Exam Narrative: Gen: Alert, oriented, thin 77 y.o. male, NAD HEENT: normocephalic, atraumatic, left eye turns medially, appears not to track with right eye especially when the left eye try to look laterally, conjunctiva clear, sclera non-icteric, oral mucosa pink and moist Neck: supple, full ROM, no JVD, trachea is midline Resp: Lungs CTA, non-labored breathing CV: RRR, no murmur or rubs Abd: soft, non-tender, normoactive BTs Skin: no lesions or rashes, dry and intact Neuro: Alert and oriented X 4 w/no focal deficits. Speech clear and coherent. Extremities: moves all 4 extremities, is ambulatory, negative Morenita?s sign Psyche: normal mood and affect. Objective Labs 08/13/22 04:28 08/13/22 04:28 Labs: Laboratory Results - last 24 hr 08/12/22 08/12/22 08/12/22 14:15 22:47 23:45 WBC RBC Hgb Hct MCV MCH MCHC RDW Plt Count Neut % (Auto) Lymph % (Auto) [place] % (Auto) Eos % (Auto) Baso % (Auto) Neut # (Auto) Lymph # (Auto) [place] # (Auto) Eos # (Auto) Baso # (Auto) Sodium Potassium Chloride Carbon Dioxide BUN Creatinine Estimated GFR BUN/Creatinine Ratio Glucose Hemoglobin A1c 5.3 Calcium Magnesium Total Bilirubin AST ALT Alkaline Phosphatase Total Protein Albumin Globulin Albumin/Globulin Ratio Triglycerides Cholesterol LDL Cholesterol, Calc HDL Cholesterol TSH U Opiates 300ng/mL cut Ur Oxycodone Screen Urine Methadone Screen Ur Barbiturates Screen U Tricyclic Antidepress Ur Phencyclidine Scrn Ur Amphetamines Screen U Methamphetamines Scrn Ur MDMA Scrn (Ecstasy) U Benzodiazepines Scrn Urine Cocaine Screen U Marijuana (THC) Screen SARS-CoV-2 (PCR) Cancelled Negative 08/12/22 08/13/22 08/13/22 23:59 04:28 04:28 WBC 5.2 RBC 4.76 Hgb 14.0 Hct 40.5 L MCV 85.1 MCH 29.4 MCHC 34.5 RDW 13.2 Plt Count 142 L Neut % (Auto) 54.6 Lymph % (Auto) 31.8 [place] % (Auto) 10.2 Eos % (Auto) 2.0 Baso % (Auto) 1.4 Neut # (Auto) 2800 Lymph # (Auto) 1700 [place] # (Auto) 500 Eos # (Auto) 100 Baso # (Auto) 100 Sodium 138 Potassium 4.0 Chloride 105 Carbon Dioxide 27 BUN 17 Creatinine 0.96 Estimated GFR > 60 BUN/Creatinine Ratio 17.7 Glucose 91 Hemoglobin A1c Calcium 9.5 Magnesium 1.9 Total Bilirubin 1.5 H AST 24 ALT 20 Alkaline Phosphatase 68 Total Protein 5.9 L Albumin 3.6 Globulin 2.3 Albumin/Globulin Ratio 1.6 Triglycerides Cholesterol LDL Cholesterol, Calc HDL Cholesterol TSH U Opiates 300ng/mL cut Negative Ur Oxycodone Screen Negative Urine Methadone Screen Negative Ur Barbiturates Screen Negative U Tricyclic Antidepress Negative Ur Phencyclidine Scrn Negative Ur Amphetamines Screen Negative U Methamphetamines Scrn Negative Ur MDMA Scrn (Ecstasy) Negative U Benzodiazepines Scrn Negative Urine Cocaine Screen Negative U Marijuana (THC) Screen Negative SARS-CoV-2 (PCR) 08/13/22 08/13/22 04:28 04:28 WBC RBC Hgb Hct MCV MCH MCHC RDW Plt Count Neut % (Auto) Lymph % (Auto) [place] % (Auto) Eos % (Auto) Baso % (Auto) Neut # (Auto) Lymph # (Auto) [place] # (Auto) Eos # (Auto) Baso # (Auto) Sodium Potassium Chloride Carbon Dioxide BUN Creatinine Estimated GFR BUN/Creatinine Ratio Glucose Hemoglobin A1c Calcium Magnesium Total Bilirubin AST ALT Alkaline Phosphatase Total Protein Albumin Globulin Albumin/Globulin Ratio Triglycerides 58 Cholesterol 158 LDL Cholesterol, Calc 102 H HDL Cholesterol 44 TSH 3.25 U Opiates 300ng/mL cut Ur Oxycodone Screen Urine Methadone Screen Ur Barbiturates Screen U Tricyclic Antidepress Ur Phencyclidine Scrn Ur Amphetamines Screen U Methamphetamines Scrn Ur MDMA Scrn (Ecstasy) U Benzodiazepines Scrn Urine Cocaine Screen U Marijuana (THC) Screen SARS-CoV-2 (PCR) [facility] Medical History (Updated 08/13/22 @ 02:08 by Armin Marr DO) Essential hypertension (02/11/16) History of renal calculi (02/11/16) Hypertensive urgency 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) Surgical History (Updated 08/13/22 @ 00:10 by RJ Pimentel) History of lithotripsy History of radical neck dissection Hx of LASIK Family History (Updated 08/13/22 @ 00:11 by RJ Pimentel) Father Cancer Lung cancer Mother Cardiac arrest Other Hyperlipidemia Social History household members: spouse Smoking Status: Never smoker alcohol intake: current Discharge Plan Discharge Plan Patient Disposition: Home Discharge orders & Medications Prescriptions: New aspirin 81 mg Tablet,Delayed Release (Dr/Ec) 81 mg PO DAILY Qty: 30 0RF atorvastatin [Lipitor] 20 mg Tablet 40 mg PO BEDTIME Qty: 30 0RF lisinopril 5 mg tablet 5 mg PO DAILY Qty: 30 0RF Visit Report/Discharge Packet Instructions: Transient Ischemic Attack, DI for Transient Ischemic Attack Stand Alone Forms: Patient Portal/API, Stroke Signs & Symptoms Discharge Data Attending Provider: Naomi Jones VTE Deep Vein Thrombosis/Pulmonary Embolism Present on Admission: No
== END 2022-08-13 12:30 | disposition home or self-care (01) ==
LOC: ED 18:04 → AC 22:11
PROVIDERS: Emergency Medicine; Admitting Provider Nurse Practitioner Family; Emergency Provider Emergency Medicine; Family Provider Family Medicine; Referring Provider Emergency Medicine; Visit Provider Nurse Practitioner Family
DX: H53.30 Unspecified disorder of binocular vision (principal); I10 Essential (primary) hypertension; R29.701 NIHSS score 1; H49.22 Sixth [abducent] nerve palsy, left eye; I49.8 Other specified cardiac arrhythmias; Z20.822 Contact with and (suspected) exposure to COVID-19
CPT/HCPCS: 36415; 70450; 70496; 70498; 70548; 70553; 71045; 80053; 80061; 80305; 81003; 82550; 82553; 83036; 83735; 84443; 84484; 85025; 85610; 85730; 87635; 93005; 93306; 99285; C9803; G0378; Q9967

== ENCOUNTER → 2022-12-28 12:29 | Outpatient (CLI) | payer MEDICARE, OTHER, SELFPAY ==
--- NOTE | 2022-12-28 | DI.CT.S_ITS ---
PROCEDURE: CT KIDNEY URETER BLADDER (KUB) INDICATIONS: RECURRENT KIDNEY STONES TECHNIQUE: Axial sections were acquired from the lung bases to the pubic symphysis. Coronal and sagittal reformats were performed. For radiation dose reduction, the following was used: automated exposure control, adjustment of mA and/or kV according to patient size. COMPARISON: [facility], CT, CT KIDNEY URETER BLADDER (KUB), 02/07/2022, 12:18. FINDINGS: Image quality: Excellent. Lung bases: Unremarkable. Heart: No significant findings. URINARY: Kidney: Redemonstration of large nonobstructing right renal stone measuring 1.8 cm in diameter and approximately 1600 Hounsfield units in density. Other punctate, small nonobstructing renal stones are also noted in the right kidney. A few scattered renal hypodensities are again noted likely representing cysts. Some are partially exophytic as before. No evidence to suggest new solid mass. Similar nonobstructing large renal stone is seen on the left. This measures approximately 1.4 cm in diameter and measures approximately 1200 Hounsfield units in density. Additional tiny punctate densities in the left kidney also likely nonobstructing renal stones. A few scattered renal hypodensities and hyperdensities are noted which again likely represent renal cysts and hyperdense cysts. Bilateral Ureter: No hydroureter. No ureteral stone Bladder: Normal wall thickness. No stones. ABDOMEN: Liver: Unremarkable. Gallbladder: Status post cholecystectomy. Biliary ducts: Unremarkable. Pancreas: Unremarkable. Spleen: Unremarkable. Adrenal Glands: Unremarkable. Stomach and Bowel: Stomach, small bowel loops, and colon are unremarkable. Normal appendix Peritoneum: No abnormal intraperitoneal fluid. No free air. Ventral Wall: No hernia. Abdominal Nodes: No enlarged retroperitoneal or mesenteric lymph nodes. Vessels: Aorta and inferior vena cava are normal in size. Atherosclerotic calcifications. PELVIS: Pelvic Organs: Unremarkable. Pelvic Nodes: Unremarkable. Miscellaneous: No inguinal hernias are seen. Bones: Visualized osseous structures appear intact without acute fracture or focal destructive lesion. No acute compression fractures of the imaged spine. Multilevel spondylosis. IMPRESSION: CT abdomen and pelvis without acute abnormalities. Bilateral nonobstructing renal stones measuring up to 1.8 cm on the right and 1.4 cm on the left. No hydronephrosis or perinephric stranding. No urinary bladder stones. Multiple bilateral hypodense and hyperdense renal lesions likely representing renal cysts and hyperdense cysts. These are not significantly changed. Consider further characterization with contrast enhanced CT or MRI using renal mass protocol. Other chronic findings as above Dictated by: Farhat Butts M.D. on 12/28/2022 at 16:03 Approved by: Farhat Butts M.D. on 12/28/2022 at 16:12
== END ==
PROVIDERS: Family Provider Family Medicine; Referring Provider Urology; Visit Provider Urology
DX: N20.0 Calculus of kidney (principal); N28.9 Disorder of kidney and ureter, unspecified
CPT/HCPCS: 74176

== ENCOUNTER → 2023-10-12 13:13 | Outpatient (CLI) | payer MEDICARE, OTHER, SELFPAY ==
--- NOTE | 2023-10-12 13:16 | DI.MRI.S_ITS ---
PROCEDURE: MR HEAD/BRAIN WO/W CON INDICATIONS: Benign neoplasm of meninges TECHNIQUE: Noncontrast axial T1 spin echo, axial T2 fast spin echo, sagittal and axial FLAIR, coronal T2 fast spin echo, axial gradient echo, axial diffusion and ADC through the brain. After the administration of contrast, axial and coronal and sagittal T1 spin echo with fat saturation through the brain. COMPARISON: [facility], CT, CT ANGIO HEAD AND NECK, 08/12/2022, 19:06. [facility], MR, MR STROKE, 08/13/2022, 8:08. FINDINGS: Image quality: Excellent. CSF spaces: Basal cisterns are patent. No extra-axial fluid collections. Ventricles are normal in size and shape. Brain: There is an extra-axial mass seen attached to the left aspect of the dura anteriorly, as seen on series 13, image 34, measuring 9 x 6 x 10 mm. This mass demonstrates low signal on T2 weighted imaging. There is relatively prominent postcontrast enhancement seen. No additional masses or areas of abnormal enhancement can be seen No midline shift. There is cerebral volume loss for age. There is periventricular white matter chronic small vessel ischemic change. The brainstem appears normal. Diffusion-weighted images demonstrate no acute infarct. No chronic ischemic insults. Normal intravascular flow voids are present. Skull and face: Calvarial marrow is normal in signal. Orbits appear normal. Note is made of bilateral lens replacements. Sinuses: Sinuses and mastoids appear clear. IMPRESSION: Stable meningioma seen attached to the left aspect of the falx anteriorly. No additional masses are seen. Dictated by: Sanchez Crowley M.D. on 10/12/2023 at 13:56 Approved by: Sanchez Crowley M.D. on 10/12/2023 at 14:00
== END ==
PROVIDERS: Family Provider Family Medicine; Referring Provider Psychiatry & Neurology Neurology; Visit Provider Psychiatry & Neurology Neurology
DX: D32.9 Benign neoplasm of meninges, unspecified (principal); G31.84 Mild cognitive impairment of uncertain or unknown etiology
CPT/HCPCS: 70553; A9579

== ENCOUNTER → 2024-04-10 12:01 | Outpatient (CLI) | payer MEDICARE, OTHER, SELFPAY ==
--- NOTE | 2024-04-10 12:03 | DI.CT.S_ITS ---
PROCEDURE: CT KIDNEY URETER BLADDER (KUB) INDICATIONS: RT KIDNEY STONES / NEPHROLITHIASIS TECHNIQUE: Axial sections were acquired from the lung bases to the pubic symphysis. Coronal and sagittal reformats were performed. For radiation dose reduction, the following was used: automated exposure control, adjustment of mA and/or kV according to patient size. COMPARISON: [facility], CT, CT KIDNEY URETER BLADDER (KUB), 12/28/2022, 12:41. FINDINGS: Image quality: Diagnostic. Lower Chest: 4 x 3 mm oval solid nodule is seen in lateral aspect of left lung base not significantly changed from 2022 study and likely represent benign process series 3, image 19. No pleural effusion or pneumothorax. Heart size is normal, no pericardial effusion. URINARY: Right Kidney: Large stone is seen in right UPJ measures up to 2.2 x 1.4 cm in size and 1634 Hounsfield unit in density. There is mild prominence of right renal collecting system and renal pelvis extending to the level of UPJ. Mild right perinephric fat stranding is also seen. Additional nonobstructing stones are noted scattered in right renal parenchyma measures up to 1.8 x 1.5 cm in size and 1867 Hounsfield unit in density. Right Ureter: No hydroureter. Left Kidney: Nonobstructing stones are noted scattered in left kidney measures up to 1.7 x 1.9 cm in size in lower pole left renal collecting system and measures 1818 Hounsfield unit in density series 2, image 42. No left-sided hydronephrosis or perinephric fat stranding. Left Ureter: No hydroureter. Bladder: Normal wall thickness. Small stones are noted in dependent portion of bladder lumen just distal to right UVJ measures 2-3 mm in size. ABDOMEN: Liver: No contour-deforming solid mass. Gallbladder: Gallbladder is surgically absent. Biliary ducts: No biliary dilation. Pancreas: No ductal dilation. Spleen: Size is within normal limits. Adrenal Glands: No adrenal nodules. Stomach and Bowel: Fecal stasis in the colon is seen. Appendix is visualized and is within normal limits. Sigmoid diverticulosis without CT evidence of acute diverticulitis. Peritoneum: No abnormal intraperitoneal fluid. No free air. Ventral Wall: No hernia. Abdominal Nodes: No enlarged retroperitoneal or mesenteric lymph nodes. Vessels: Aorta and inferior vena cava are normal in size. [id number] atherosclerotic calcifications are noted in abdominal aorta. PELVIS: Pelvic Organs: Mildly enlarged prostate gland with mass effect on floor of urinary bladder is seen.. Pelvic Nodes: Subcentimeter lymph nodes are seen in bilateral inguinal region measures up to 8 mm in short axis diameter in right inguinal region. Miscellaneous: No inguinal hernias are seen. Bones: No aggressive appearing bony lesions. Degenerative disc disease throughout lumbar spine is seen. IMPRESSION: 1. Bilateral nonobstructing renal calculi as above. There is a large stone in right renal pelvis/UPJ with mild right-sided hydronephrosis suggestive of and lease partially obstructing stone. No hydroureter. No left-sided hydronephrosis. 2. Normal bladder wall thickness. Faint 2-3 mm calcifications seen in dependent portion of bladder lumen near right UVJ and may represent past stones or bladder stones. No discrete bladder wall mass. 3. No bowel obstruction or abnormal bowel wall thickening. [id number] constipation. No free fluid or free air. 4. Mildly enlarged prostate gland with mass effect on floor of urinary bladder. Dictated by: Naren Shahid M.D. on 04/10/2024 at 16:00 Approved by: Naren Shahid M.D. on 04/10/2024 at 16:11
== END ==
PROVIDERS: Family Provider Family Medicine; Referring Provider Nurse Practitioner Adult Health; Visit Provider Nurse Practitioner Adult Health
DX: N13.30 Unspecified hydronephrosis (principal); N20.0 Calculus of kidney; N21.0 Calculus in bladder; N40.0 Benign prostatic hyperplasia without lower urinary tract symptoms; M47.816 Spondylosis without myelopathy or radiculopathy, lumbar region; I70.0 Atherosclerosis of aorta; K59.00 Constipation, unspecified; K57.30 Diverticulosis of large intestine without perforation or abscess without bleeding; Z90.49 Acquired absence of other specified parts of digestive tract
CPT/HCPCS: 74176